=== PATIENT | male | born 1950 | race Asian ===

== ENCOUNTER → 2017-04-12 | Outpatient (CLI) | payer MEDICARE ==
--- NOTE | 2017-04-16 11:46 | SLEEPCENT ---
DATE OF PROCEDURE: 04/12/2017 ORDERED BY: Noni Monson NP Nocturnal polysomnography was performed for evaluation of sleep physiology in this patient with a history of excessive somnolence and snoring. 6 hours and 10 minutes of data were reviewed. There were 314 minutes of sleep identified. Sleep latency was prolonged at 24 minutes. Rapid eye movement (REM) was prolonged at 120 minutes. Sleep architecture was fairly good with 5 REM cycles noted. Overall sleep efficiency was 86.9%. The electrocardiogram showed a sinus rhythm with an average heart rate of 62 beats per minute. EEG showed normal waveforms for awake and sleep cycles. There were only 2 respiratory events identified of 10 seconds in duration or greater for an apnea hypopnea index of 0.4, well within normal limits. Snoring was noted over the course of the study and respiratory rate related arousals occurred 1.3 times per hour when arousals for snoring were included. There was some limb activity. No trains of events. Limb movement arousal index 3.2. IMPRESSION: Normal nocturnal polysomnography with snoring.
== END ==
LOC: M SLEEP 19:57
PROVIDERS: ATTEND Nurse Practitioner Adult Health
DX: G47.30 Sleep apnea, unspecified (principal)

== ENCOUNTER 2022-09-12 06:34 | Day surgery (SDC) | payer MEDICARE ==
[~2022-09-12] VITALS: Ht 175.3 cm; Wt 75.2 kg
[~2022-09-12 06:34] MED LIST: LEVO50TA5 PO; LOSA25TA13 PO; METF-839 PO; NS 1,000 ML IV ONE; SIMV10TA21 PO
[2022-09-12] MEDS ORDERED: LIDOCAINE 2% 100MG/5ML SDV (FOR ANES.) As Ordered ONE (08:19)
[2022-09-12] MEDS ORDERED: propofoL 200 MG/20 ML VIAL As Ordered ONE (08:19)
[2022-09-12 09:10] VITALS: BP 133/71
== END 2022-09-12 09:20 | disposition home or self-care (01) ==
LOC: M OPP 06:34
PROVIDERS: ATTEND Internal Medicine Gastroenterology
DX: K57.30 Diverticulosis of large intestine without perforation or abscess without bleeding (principal); K64.8 Other hemorrhoids; Z86.010 Personal history of colon polyps; K44.9 Diaphragmatic hernia without obstruction or gangrene; K22.89 Other specified disease of esophagus; R12 Heartburn
CPT/HCPCS: 43239; 88305; G0105